=== PATIENT | female | born 1960 | race Caucasian/White ===

== ENCOUNTER 2017-11-07 12:33 | Day surgery (SDC) | payer OTHER ==
[2017-11-07] MEDS ORDERED: BUPIVACAINE 0.25%/EPI (SDV) 30 ML INJ (14:07)
[2017-11-07] MEDS ORDERED: POLYMYXIN/BACITRACIN 1L IRRIG (14:14)
[2017-11-07] MEDS ORDERED: ROPIVACAINE 0.5 % 30 ML VIAL (14:27)
[2017-11-07] MEDS ORDERED: MIDAZOLAM 1 MG/ML 2 ML INJ (14:27)
[2017-11-07] MEDS ORDERED: DIPHENHYDRAMINE 50 MG INJ IV (16:00)
[2017-11-07] MEDS ORDERED: METOCLOPRAMIDE 10 MG INJ IV (16:00)
[2017-11-07] MEDS ORDERED: FENTAnyl 50 MCG/ML VIAL IV ×3 (16:00)
[2017-11-07] MEDS ORDERED: ONDANSETRON 4 MG INJ IV (16:00)
[2017-11-07] MEDS ORDERED: HYDROmorphONE (0.2 MG/ML) 10ML SYG IV ×3 (16:00)
[2017-11-07] MEDS ORDERED: MEPERIDINE 25 MG INJ IV (16:00)
[2017-11-07] MEDS ORDERED: PROPOFOL 20 ML (16:41)
[2017-11-07] MEDS ORDERED: ROCURONIUM 50 MG INJ (16:41)
[2017-11-07] MEDS ORDERED: SUCCINYLCHOLINE CHLORIDE 100 MG/5 ML SYG IV (16:41)
[2017-11-07] MEDS ORDERED: LIDOCAINE 2% (SDV) 5 ML INJ (16:41)
[2017-11-07] MEDS ORDERED: CEFAZOLIN 1 GM INJ (16:42)
[2017-11-07] MEDS ORDERED: SUGAMMADEX SODIUM 200 MG/2 ML VIAL IV (16:42)
[2017-11-07] MEDS ORDERED: FENTAnyl 50 MCG/ML VIAL (16:50)
[2017-11-07] MEDS ORDERED: PROVENTIL HFA 6.7GM INHALER (17:04)
== END 2017-11-07 18:35 | disposition home or self-care (01) ==
LOC: SDS 12:33
DX: T84.84XA Pain due to internal orthopedic prosthetic devices, implants and grafts, initial encounter (principal); S63.592A Other specified sprain of left wrist, initial encounter; Y83.8 Other surgical procedures as the cause of abnormal reaction of the patient, or of later complication, without mention of misadventure at the time of the procedure; I10 Essential (primary) hypertension; J44.9 Chronic obstructive pulmonary disease, unspecified; J45.909 Unspecified asthma, uncomplicated; E66.01 Morbid (severe) obesity due to excess calories; Z68.32 Body mass index [BMI] 32.0-32.9, adult
CPT/HCPCS: 20680; 73110-LT; 88300

== ENCOUNTER 2018-01-09 08:48 | Day surgery (SDC) | payer OTHER ==
[2018-01-09] MEDS ORDERED: MIDAZOLAM 1 MG/ML 2 ML INJ (12:41)
[2018-01-09] MEDS ORDERED: LIDOCAINE 1% (MDV) 20 ML INJ ×2 (12:41→13:23)
[2018-01-09] MEDS ORDERED: IODIXANOL LOCM 100 ML BTL (12:42)
[2018-01-09] MEDS ORDERED: FENTAnyl 50 MCG/ML VIAL (12:42)
[2018-01-09] MEDS ORDERED: HYDROmorphONE (0.2 MG/ML) 10ML SYG IV (14:28)
[2018-01-09] MEDS ORDERED: HYDROmorphONE 0.5 MG/0.5 ML SYG IV (14:29)
[2018-01-09] MEDS: HYDROmorphONE 2 MG/ML SYG IV (15:32)
== END 2018-01-09 18:00 | disposition home or self-care (01) ==
LOC: SDS 08:48
DX: I73.9 Peripheral vascular disease, unspecified (principal); N18.3 Chronic kidney disease, stage 3 (moderate); J44.9 Chronic obstructive pulmonary disease, unspecified; F17.200 Nicotine dependence, unspecified, uncomplicated
CPT/HCPCS: 36200; 75710

== ENCOUNTER 2018-02-18 11:46 | Inpatient (IN) | payer OTHER ==
[~2018-02-18 11:46] MED LIST: EPHEDrine SULFATE 50 MG/5 ML SYG; ROCURONIUM 50 MG INJ
[2018-02-18 13:17] LABS: POTASSIUM 3.2 mmol/L (3.5-5.1)
[2018-02-18] MEDS ORDERED: VANCOMYCIN 1 GM INJ (13:43)
[2018-02-18] MEDS ORDERED: FENTAnyl 50 MCG/ML VIAL (15:07)
[2018-02-18] MEDS ORDERED: ROCURONIUM 50 MG INJ (15:07)
[2018-02-18] MEDS ORDERED: ONDANSETRON 4 MG INJ (15:07)
[2018-02-18] MEDS ORDERED: MIDAZOLAM 1 MG/ML 2 ML INJ (15:07)
[2018-02-18] MEDS ORDERED: METOCLOPRAMIDE 10 MG INJ (15:07)
[2018-02-18] MEDS ORDERED: CEFAZOLIN 1 GM INJ (15:07)
[2018-02-18] MEDS ORDERED: PROPOFOL 20 ML (15:07)
[2018-02-18] MEDS: THROMBIN 5000 UNIT VIAL (16:39)
[2018-02-18] MEDS: GELATIN SIZE 100 SPONGE (16:39)
[2018-02-18] MEDS: POLYMYXIN/BACITRACIN 1L IRRIG (16:39)
[2018-02-18] MEDS: HEPARIN 1000 UNITS/ML 10 ML INJ (16:39)
[2018-02-18] MEDS ORDERED: HYDROmorphONE 2 MG/ML SYG (16:41)
[2018-02-18] MEDS ORDERED: HEPARIN 1000 UNITS/ML 10 ML INJ (17:41)
[2018-02-18] MEDS ORDERED: MEPERIDINE 25 MG INJ IV (18:30)
[2018-02-18] MEDS ORDERED: ONDANSETRON 4 MG INJ IV (18:30)
[2018-02-18] MEDS ORDERED: DIPHENHYDRAMINE 50 MG INJ IV (18:30)
[2018-02-18] MEDS ORDERED: HYDROmorphONE (0.2 MG/ML) 10ML SYG IV ×3 (18:30)
[2018-02-18 20:24] LABS: ADD MAN DIFF? NO
[2018-02-18 20:26] LABS: WHITE BLOOD COUNT 13.2 10^3/ul (4.8-10.8)
[2018-02-18 20:26] LABS: BASOPHIL # 0.1 10^3/ul (0.0-0.1); BASOPHILS % 0.4 % (0.0-2.0); EOSINOPHILS # 0.1 10^3/ul (0.0-0.5); EOSINOPHILS % 0.7 % (0.0-7.0); HEMATOCRIT 34.8 % (37.0-47.0); HEMOGLOBIN 11.5 g/dl (12.0-16.0); LYMPHOCYTES # 1.9 10^3/ul (0.8-2.9); LYMPHOCYTES % 14.5 % (15.0-51.0); MEAN CORPUSCULAR HEMOGLOBIN 30.3 pg (29.0-33.0); MEAN CORPUSCULAR VOLUME 91.8 fl (82.0-101.0); MEAN PLATELET VOLUME 10.3 fl (7.4-10.4); MONOCYTE # 0.6 10^3/ul (0.3-0.9); MONOCYTES % 4.2 % (0.0-11.0); NEUTROPHIL # 10.5 10^3/ul (1.6-7.5); NEUTROPHILS % 79.7 % (39.0-77.0); PLATELET COUNT 211 10^3/UL (140-415); RED BLOOD COUNT 3.79 10^6/ul (4.20-5.40); RED CELL DISTRIBUTION WIDTH 14.5 % (11.5-14.5)
[2018-02-18 20:43] LABS: ANION GAP 13 (8-16); BLOOD UREA NITROGEN 15 mg/dl (7-20); CARBON DIOXIDE 23 mmol/L (21-31); CHLORIDE 110 mmol/L (97-110); CREATININE 0.86 mg/dl (0.44-1.00); GLUCOSE 211 mg/dl (70-220); POTASSIUM 3.1 mmol/L (3.5-5.1); SODIUM 143 mmol/L (135-144)
[2018-02-18] MEDS: CEFAZOLIN 1 GM/50 ML (PMX) 50 ML IVPB (21:45)
[2018-02-18] MEDS: ONDANSETRON 4 MG INJ IV (22:39)
[2018-02-18] MEDS: POTASSIUM CHLORIDE 100 ML IVPB (22:39)
[2018-02-18] MEDS: HYDROmorphONE 0.5 MG/0.5 ML SYG IV (22:39)
[2018-02-19] MEDS: 1/2 NS + KCL 20 MEQ 1,000 ML IV ×4 (00:38→21:42)
[2018-02-19] MEDS: POTASSIUM CHLORIDE 100 ML IVPB (02:54)
[2018-02-19] MEDS: HYDROmorphONE 0.5 MG/0.5 ML SYG IV ×3 (02:54→12:27)
[2018-02-19 05:39] LABS: ADD MAN DIFF? NO
[2018-02-19 05:44] LABS: WHITE BLOOD COUNT 10.3 10^3/ul (4.8-10.8)
[2018-02-19 05:44] LABS: BASOPHIL # 0.1 10^3/ul (0.0-0.1); BASOPHILS % 0.5 % (0.0-2.0); EOSINOPHILS # 0.1 10^3/ul (0.0-0.5); EOSINOPHILS % 0.9 % (0.0-7.0); HEMATOCRIT 34.9 % (37.0-47.0); HEMOGLOBIN 11.5 g/dl (12.0-16.0); LYMPHOCYTES # 1.7 10^3/ul (0.8-2.9); LYMPHOCYTES % 16.1 % (15.0-51.0); MEAN CORPUSCULAR HEMOGLOBIN 30.2 pg (29.0-33.0); MEAN CORPUSCULAR VOLUME 91.6 fl (82.0-101.0); MEAN PLATELET VOLUME 11.1 fl (7.4-10.4); MONOCYTE # 0.6 10^3/ul (0.3-0.9); MONOCYTES % 6.2 % (0.0-11.0); NEUTROPHIL # 7.8 10^3/ul (1.6-7.5); PLATELET COUNT 222 10^3/UL (140-415); RED BLOOD COUNT 3.81 10^6/ul (4.20-5.40); RED CELL DISTRIBUTION WIDTH 14.6 % (11.5-14.5)
[2018-02-19 06:07] LABS: ANION GAP 13 (8-16); BLOOD UREA NITROGEN 16 mg/dl (7-20); CALCIUM 8.2 mg/dl (8.4-10.2); CARBON DIOXIDE 23 mmol/L (21-31); CHLORIDE 109 mmol/L (97-110); CREATININE 0.81 mg/dl (0.44-1.00); GLUCOSE 135 mg/dl (70-220); MAGNESIUM 1.9 mg/dl (1.7-2.5); PHOSPHORUS 3.6 mg/dl (2.5-4.9); POTASSIUM 4.3 mmol/L (3.5-5.1); SODIUM 141 mmol/L (135-144)
[2018-02-19] MEDS: HYDROCODONE/APAP (5/325) TAB PO ×3 (10:26→21:36)
[2018-02-19] MEDS ORDERED: HYDROCODONE/APAP (5/325) TAB PO (10:30)
[2018-02-19] MEDS: LEVALBUTEROL (NEB) 0.63 MG/3 ML AMP HHN ×2 (13:20→19:54)
[2018-02-19] MEDS: PANTOPRAZOLE (EC) 40 MG TAB PO (13:56)
[2018-02-19 16:09] LABS: ADD UMIC YES; UR AMORPHOUS CRYSTAL MANY /HPF (NONE SEEN); UR ASCORBIC ACID NEGATIVE (NEGATIVE); UR BACTERIA FEW /HPF (NONE SEEN); UR BILIRUBIN (Dip) NEGATIVE (NEGATIVE); UR BLOOD (Dip) NEGATIVE (NEGATIVE); UR CLARITY TURBID (CLEAR); UR COLOR YELLOW (YELLOW); UR GLUCOSE (Dip) NEGATIVE (NEGATIVE); UR KETONES (Dip) NEGATIVE (NEGATIVE); UR LEUKOCYTE ESTERASE (Dip) NEGATIVE Leu/ul (NEGATIVE); UR MUCUS FEW /HPF (NONE SEEN); UR NITRITE (Dip) NEGATIVE (NEGATIVE); UR RBC 9 /HPF (0-5); UR SPECIFIC GRAVITY (Dip) 1.025 (1.003-1.030); UR TOTAL PROTEIN (Dip) NEGATIVE (NEGATIVE); UR UROBILINOGEN (Dip) 1+ mg/dL (NEGATIVE); UR WBC 51 /HPF (0-5)
[2018-02-19] MEDS: FLUDROCORTISONE 0.1 MG TAB PO (21:35)
[2018-02-19] MEDS: AMITRIPTYLINE 50 MG TAB PO (21:36)
[2018-02-19] MEDS: LAMOTRIGINE 100 MG TAB PO (21:36)
[2018-02-19] MEDS: ATORVASTATIN 40 MG TAB PO (21:38)
[2018-02-19] MEDS ORDERED: ACETAMINOPHEN 325 MG TAB PO (22:00)
[2018-02-19] MEDS ORDERED: GUAIFENESIN/DM 5ML CUP PO (22:00)
[2018-02-19] MEDS: METHYLPREDNISOLONE 125 MG INJ IV (22:55)
[2018-02-19] MEDS: LEVOFLOXACIN 500MG/D5W (PMX) 100 ML IVPB (22:56)
[2018-02-20] MEDS: HYDROmorphONE 0.5 MG/0.5 ML SYG IV ×5 (00:23→21:07)
[2018-02-20] MEDS: LEVALBUTEROL (NEB) 0.63 MG/3 ML AMP HHN ×4 (01:29→20:12)
[2018-02-20] MEDS: PANTOPRAZOLE (EC) 40 MG TAB PO (06:06)
[2018-02-20] MEDS: HYDROCODONE/APAP (5/325) TAB PO ×3 (06:06→17:38)
[2018-02-20 06:07] LABS: ADD MAN DIFF? NO
[2018-02-20 06:14] LABS: ABNORMAL IP MESSAGE 1; BASOPHILS % 0.3 % (0.0-2.0); EOSINOPHILS % 0.1 % (0.0-7.0); HEMATOCRIT 30.3 % (37.0-47.0); LYMPHOCYTES # 0.6 10^3/ul (0.8-2.9); MEAN CORPUSCULAR HEMOGLOBIN 30.6 pg (29.0-33.0); MEAN CORPUSCULAR VOLUME 92.7 fl (82.0-101.0); MEAN PLATELET VOLUME 11.6 fl (7.4-10.4); MONOCYTE # 0.2 10^3/ul (0.3-0.9); MONOCYTES % 2.1 % (0.0-11.0); NEUTROPHIL # 10.2 10^3/ul (1.6-7.5); NEUTROPHILS % 91.9 % (39.0-77.0); PLATELET COUNT 172 10^3/UL (140-415); RED BLOOD COUNT 3.27 10^6/ul (4.20-5.40); RED CELL DISTRIBUTION WIDTH 14.5 % (11.5-14.5)
[2018-02-20 06:19] LABS: POSITIVE DIFF @See below
[2018-02-20 06:50] LABS: BLOOD UREA NITROGEN 13 mg/dl (7-20); CALCIUM 8.5 mg/dl (8.4-10.2); CARBON DIOXIDE 24 mmol/L (21-31); CHLORIDE 108 mmol/L (97-110); CREATININE 0.87 mg/dl (0.44-1.00); GLUCOSE 166 mg/dl (70-220); SODIUM 142 mmol/L (135-144)
[2018-02-20 07:24] LABS: ANION GAP 14 (8-16); POTASSIUM 3.9 mmol/L (3.5-5.1)
[2018-02-20] MEDS: METHYLPREDNISOLONE 125 MG INJ IV (08:35)
[2018-02-20] MEDS: CHOLECALCIFEROL 2,000 UNIT CAP PO (08:36)
[2018-02-20] MEDS: FLUDROCORTISONE 0.1 MG TAB PO ×2 (08:36→21:06)
[2018-02-20] MEDS: TOPIRAMATE 100 MG TAB PO (08:36)
[2018-02-20] MEDS: LAMOTRIGINE 100 MG TAB PO ×2 (08:36→21:06)
[2018-02-20] MEDS: METOPROLOL 25 MG TAB PO (08:37)
[2018-02-20] MEDS: ATORVASTATIN 40 MG TAB PO (21:06)
[2018-02-20] MEDS: LEVOFLOXACIN 500MG/D5W (PMX) 100 ML IVPB (21:09)
[2018-02-20] MEDS: AMITRIPTYLINE 50 MG TAB PO (21:09)
[2018-02-21] MEDS: HYDROmorphONE 0.5 MG/0.5 ML SYG IV ×2 (00:59→11:31)
[2018-02-21] MEDS: LEVALBUTEROL (NEB) 0.63 MG/3 ML AMP HHN ×3 (01:26→14:03)
[2018-02-21] MEDS: HYDROCODONE/APAP (5/325) TAB PO (05:15)
[2018-02-21] MEDS: PANTOPRAZOLE (EC) 40 MG TAB PO (05:15)
[2018-02-21 07:02] LABS: ADD MAN DIFF? NO
[2018-02-21 07:11] LABS: BASOPHILS % 0.1 % (0.0-2.0); HEMATOCRIT 27.7 % (37.0-47.0); LYMPHOCYTES # 1.3 10^3/ul (0.8-2.9); LYMPHOCYTES % 7.7 % (15.0-51.0); MEAN CORPUSCULAR HEMOGLOBIN 30.4 pg (29.0-33.0); MEAN CORPUSCULAR HGB CONC 32.5 g/dl (32.0-37.0); MEAN CORPUSCULAR VOLUME 93.6 fl (82.0-101.0); MEAN PLATELET VOLUME 11.7 fl (7.4-10.4); MONOCYTE # 0.8 10^3/ul (0.3-0.9); MONOCYTES % 4.7 % (0.0-11.0); NEUTROPHIL # 15.1 10^3/ul (1.6-7.5); NEUTROPHILS % 86.9 % (39.0-77.0); PLATELET COUNT 194 10^3/UL (140-415); RED BLOOD COUNT 2.96 10^6/ul (4.20-5.40); RED CELL DISTRIBUTION WIDTH 14.6 % (11.5-14.5)
[2018-02-21 07:11] LABS: WHITE BLOOD COUNT 17.4 10^3/ul (4.8-10.8)
[2018-02-21 07:47] LABS: ANION GAP 12 (8-16); BLOOD UREA NITROGEN 22 mg/dl (7-20); CALCIUM 8.8 mg/dl (8.4-10.2); CARBON DIOXIDE 27 mmol/L (21-31); CHLORIDE 106 mmol/L (97-110); CREATININE 0.96 mg/dl (0.44-1.00); GLUCOSE 109 mg/dl (70-220); POTASSIUM 3.6 mmol/L (3.5-5.1); SODIUM 141 mmol/L (135-144)
[2018-02-21] MEDS: LAMOTRIGINE 100 MG TAB PO ×2 (09:00→11:38)
[2018-02-21] MEDS: METOPROLOL 25 MG TAB PO (09:00)
[2018-02-21] MEDS: TOPIRAMATE 100 MG TAB PO ×2 (09:00→11:38)
[2018-02-21] MEDS: FLUDROCORTISONE 0.1 MG TAB PO ×2 (09:00→11:39)
[2018-02-21] MEDS: METHYLPREDNISOLONE 125 MG INJ IV (09:08)
[2018-02-21] MEDS: CHOLECALCIFEROL 2,000 UNIT CAP PO ×2 (09:08→11:37)
== END 2018-02-21 19:10 | disposition home or self-care (01) | DRG 271 ==
LOC: REC 11:46 → MS2 02-19 11:30 → ICU 20:05
PROVIDERS: Thoracic Surgery (Cardiothoracic Vascular Surgery)
PROC: 031 Upper Arteries, Bypass (ICD-10-PCS; principal; 2018-02-18 14:00)
PROC: 03B Upper Arteries, Excision (ICD-10-PCS; 2018-02-18 14:00)
PROC: 04CL0ZZ Extirpation of Matter from Left Femoral Artery, Open Approach (ICD-10-PCS; 2018-02-18 14:00)
PROC: 031 Upper Arteries, Bypass (ICD-10-PCS; 2018-02-18 14:00)
PROC: 3E05017 Introduction of Other Thrombolytic into Peripheral Artery, Open Approach (ICD-10-PCS; 2018-02-18 14:00)
DX: I70.223 Atherosclerosis of native arteries of extremities with rest pain, bilateral legs (principal); N39.0 Urinary tract infection, site not specified; J44.9 Chronic obstructive pulmonary disease, unspecified; Z72.0 Tobacco use; Z72.3 Lack of physical exercise; I12.9 Hypertensive chronic kidney disease with stage 1 through stage 4 chronic kidney disease, or unspecified chronic kidney disease; N18.3 Chronic kidney disease, stage 3 (moderate); F41.9 Anxiety disorder, unspecified
CPT/HCPCS: 71045; 80048; 81001; 83735; 84100; 84132; 85025; 86850; 86900; 86901; 87081; 88304; 88311; 94640; 94664; 97116; 97162; 97530